=== PATIENT | female | born 1950 | race Caucasian/White ===

== ENCOUNTER 2021-04-06 21:33 | Emergency (ER) | payer OTHER ==
[~2021-04-06] VITALS: Ht 170.2 cm; Wt 70.3 kg
[2021-04-06 22:34] LABS: Basophils # (auto) 0 10 ^3/uL (0-0.2); Basophils % (auto) 0.5 % (0.0-2.0); Eosinophils # (auto) 0 10 ^3/uL (0-0.8); Eosinophils % (auto) 0.4 % (0.0-7.0); Hematocrit 43.8 % (36.0-46.0); Lymphocytes # (auto) 0.4 10 ^3/uL (0.4-5.4); Lymphocytes % (auto) 8.6 % (10.0-50.0); Mean Corpuscular Hemoglobin 29.3 pg (28.0-32.0); Mean Corpuscular Hgb Conc. 34.3 g/dL (32.0-36.0); Mean Corpuscular Volume 85.6 fL (80.0-100.0); Monocytes # (auto) 0.6 10 ^3/uL (0-1.3); Monocytes % (auto) 10.9 % (0.0-12.0); Neutrophils # (auto) 4.1 10 ^3/uL (1.6-8.6); Neutrophils % (auto) 79.6 % (37.0-80.0); Nucleated Red Blood Cells % 0.1 %; Red Blood Cells 5.12 10^6/uL (4.0-5.20); Red Cell Distribution Width 13.3 % (11.8-14.3); White Blood Cell 5.1 10^3/uL (4.4-10.8)
[2021-04-06 22:56] LABS: Alanine Aminotransferase 49 U/L (13-56); Albumin 2.8 g/dL (3.4-5.0); Anion Gap 8 (5-15); Blood Urea Nitrogen 17 mg/dL (7-18); Carbon Dioxide 28 mmol/L (21-32); Chloride 103 mmol/L (98-107); Glucose 119 mg/dL (74-106); Sodium 139 mmol/L (136-145)
[2021-04-06 23:01] LABS: Alkaline Phosphatase 140 U/L (45-117); Aspartate Aminotransferase 40 U/L (15-37); BUN/Creatinine Ratio 21.8; Bilirubin, Total 0.6 mg/dL (0.2-1.0); GFR African American 93 mL/min; GFR Non-African American 77 mL/min; Total Protein 6.9 g/dL (6.4-8.2)
[2021-04-06 23:05] LABS: Potassium 2.5 mmol/L (3.5-5.1)
[2021-04-06] MEDS ORDERED: POTASSIUM EFFERVESENT TAB 25 MEQ PO ONE (23:45)
[2021-04-07] MEDS: POTASSIUM CHL 20MEQ/100ML 100 ML IV SCH ×2 (00:35→01:45)
[2021-04-07] MEDS ORDERED: IPRATROPIUM BROM 0.5 MG/2.5ML INH SOL NEB ONE ×2 (08:15→12:00)
[2021-04-07] MEDS ORDERED: ALBUTEROL SULF 2.5 MG/0.5ML(0.5%) NEB SOLN NEB ONE ×2 (08:15→12:00)
[2021-04-07] MEDS ORDERED: guaiFENesin-DM 100/10mg/5ml SYR PO ONE (11:45)
[2021-04-07] MEDS ORDERED: PROMETHAZINE HCL 25 MG/ML 1ML IV ONE (11:45)
[2021-04-07] MEDS ORDERED: cefTRIAXone 1GM/50ML D5W 50 ML IV ONE (13:00)
[2021-04-07] MEDS ORDERED: POTASSIUM EFFERVESENT TAB 25 MEQ PO ONE (13:00)
[2021-04-07] MEDS ORDERED: AZITHROMYCIN 500MG/ 250ML 250 ML IV ONE (13:00)
[2021-04-07] MEDS ORDERED: ZINC SULFATE 220mg CAP or TAB PO ONE (13:15)
[2021-04-07] MEDS ORDERED: CHOLECALCIFEROL (VITD3) 2,000 UNIT CAP/TAB PO ONE (13:15)
[2021-04-07] MEDS ORDERED: methylPREDNISolone SOD SUCC 125 MG/2 ML VL IV ONE (13:15)
[2021-04-07] MEDS ORDERED: ASCORBIC ACID 500 MG TAB PO ONE (13:15)
[2021-04-07 19:54] VITALS: BP 137/76
== END 2021-04-07 19:53 | disposition hospice, inpatient (51) ==
LOC: EDBD 21:33 → ER 21:33
DX: U07.1 COVID-19 (principal); J96.91 Respiratory failure, unspecified with hypoxia; E87.6 Hypokalemia; R53.1 Weakness; J45.909 Unspecified asthma, uncomplicated
CPT/HCPCS: 36415; 71045; 80053; 83605; 83880; 84132; 84484; 85025; 87426; 96365; 96366; 96368; 96375; 99291; C9803; J0456; J0696; J2550; J2930; J3480; J7644; U0003